=== PATIENT | male | born 1955 | race Caucasian/White ===

== ENCOUNTER 2023-01-07 17:18 | Inpatient (IN) | payer MEDICARE, OTHER ==
[2023-01-07] MEDS ORDERED: Albuterol/Ipratropium 3.0-0.5 MG/3 ML Neb Soln NEB ONE (17:40)
[2023-01-07 18:04] LABS: INR 1.87 (0.86-1.11)
[2023-01-07 18:13] LABS: A/G RATIO 0.8 (0.9-1.6); ALBUMIN 2.3 g/dL (3.4-5.0); BILIRUBIN TOTAL 0.5 mg/dL (0.2-1.0); CALCIUM 7.8 mg/dL (8.5-10.1); CARBON DIOXIDE,CO2 31.6 mmol/L (21.0-32.0); CREATININE 0.8 mg/dL (0.8-1.3); EST CRCL DRUG DOSING (CG) 92.82 mL/min; POTASSIUM,K 3.5 mmol/L (3.5-5.1); PROTEIN TOTAL,TP 5.3 g/dL (6.4-8.2)
[2023-01-07 18:32] LABS: HEMATOCRIT 27.8 % (42.0-52.0); MEAN CORPUSCULAR HGB CONC 32.4 g/dL (32.0-36.0); MEAN CORPUSCULAR VOLUME 98.9 fL (83.0-99.0); MEAN PLATELET VOLUME 13.6 fL (9.4-12.4); PLATELET COUNT,PLT 149 K/uL (150-400); RED BLOOD CELL COUNT 2.81 M/uL (4.52-5.90); WHITE BLOOD CELL COUNT,WBC 12.42 K/uL (3.9-11.3)
[2023-01-07 18:33] LABS: SEG NEUTROPHILS ABSOLUTE MAN 8.2 (1.4-5.7); SEG NEUTROPHILS PERCENT MAN 66 % (48.0-80.0)
[2023-01-07 18:33] LABS: CORONAVIRUS COVID-19 NAA NEGATIVE (NEGATIVE); INFLUENZA A NAA NEGATIVE (NEGATIVE); INFLUENZA B NAA NEGATIVE (NEGATIVE)
[2023-01-07 18:34] LABS: BAND ABSOLUTE MAN 1.2; BAND PERCENT MAN 10 %; BASOPHILS ABSOLUTE MAN 0.1 (0.0-0.1); BASOPHILS PERCENT MAN 1 % (0.0-1.5); EOSINOPHILS ABSOLUTE MAN 0.1 (0.0-0.7); EOSINOPHILS PERCENT MAN 1 % (0.0-7.0); LYMPHOCYTES ABSOLUTE MAN 0.6 (0.6-2.4); LYMPHOCYTES PERCENT MAN 5 % (16.0-40.0); METAMYELOCYTE ABSOLUTE MAN 1.1; METAMYELOCYTE PERCENT MAN 9 %; MONOCYTES ABSOLUTE MAN 0.7 (0.0-0.8); MONOCYTES PERCENT MAN 6 % (0.0-15.0); MYELOCYTE ABSOLUTE MAN 0.2; MYELOCYTE PERCENT MAN 2 %; NRBC MANUAL 2 %
[2023-01-07 18:35] LABS: ANISOCYTOSIS 1+ SLIGHT
[2023-01-07] MEDS ORDERED: Furosemide 40 MG/4 ML VIAL IVPUSH ONE (19:29)
[2023-01-07] MEDS ORDERED: Tetracaine HCl/PF 0.5% 4 ML Bottle EYEBOTH ONE (19:34)
[2023-01-07] MEDS ORDERED: cefTRIAXone 2 GM in Sodium Chloride 0.9% 50 ML IV ONE (20:57)
[2023-01-07] MEDS ORDERED: Morphine 2 MG/ML SYRINGE IVPUSH PRN (21:10)
[2023-01-07] MEDS ORDERED: Albuterol/Ipratropium 3.0-0.5 MG/3 ML Neb Soln NEB PRN (21:10)
[2023-01-07] MEDS ORDERED: Naloxone 0.4 MG/ML SDV IVPUSH PRN (21:10)
[2023-01-07] MEDS ORDERED: Polyethylene Glycol 3350 Powder 17 GM Packet PO PRN (21:10)
[2023-01-07] MEDS ORDERED: Sodium Chloride 0.9% 10 ML Syringe FLUSH PRN (21:10)
[2023-01-07] MEDS ORDERED: Sodium Chloride 0.9% 20 ML SDV IV PRN (21:10)
[2023-01-07] MEDS ORDERED: Sodium Chloride 0.9% 2.5 ML Syringe FLUSH PRN (21:10)
[2023-01-07] MEDS ORDERED: 50% Dextrose in Water 50 ML Syringe IVPUSH PRN (21:18)
[2023-01-07] MEDS ORDERED: Glucagon,Human Recombinant 1 MG Vial IM PRN (21:18)
[2023-01-08] MEDS ORDERED: Insulin Aspart 100 Units/ML 3 ML Pen SUBCUT SCH (07:30)
[2023-01-08] MEDS: Enoxaparin 40 MG/0.4 ML Syringe SUBCUT SCH (08:45)
[2023-01-08] MEDS: Ondansetron 4 MG/2 ML SDV IVPUSH PRN (08:45)
[2023-01-08] MEDS: Furosemide 40 MG/4 ML VIAL IVPUSH SCH ×2 (08:55→20:07)
[2023-01-08] MEDS ORDERED: cefTRIAXone 2 GM in Sodium Chloride 0.9% 50 ML IV SCH (09:00)
[2023-01-08 09:26] LABS: HEMATOCRIT 28.2 % (42.0-52.0); MEAN CORPUSCULAR HEMOGLOBIN 31.8 pg (28.0-32.0); MEAN CORPUSCULAR HGB CONC 31.9 g/dL (32.0-36.0); MEAN CORPUSCULAR VOLUME 99.6 fL (83.0-99.0); MEAN PLATELET VOLUME 13.1 fL (9.4-12.4); NRBC ABSOLUTE 0.34 K/uL (0.00-0.02); NRBC PERCENT 2.9 /100WBC (0.0-0.2); PLATELET COUNT,PLT 150 K/uL (150-400); RED BLOOD CELL COUNT 2.83 M/uL (4.52-5.90); WHITE BLOOD CELL COUNT,WBC 11.58 K/uL (3.9-11.3)
[2023-01-08] MEDS: cefTRIAXone 2 GM in Sodium Chloride 0.9% 50 ML IV SCH ×2 (09:36→20:05)
[2023-01-08 10:00] LABS: A/G RATIO 0.7 (0.9-1.6); ALBUMIN 2.1 g/dL (3.4-5.0); BILIRUBIN TOTAL 0.4 mg/dL (0.2-1.0); CARBON DIOXIDE,CO2 34.5 mmol/L (21.0-32.0); CREATININE 0.9 mg/dL (0.8-1.3); EST CRCL DRUG DOSING (CG) 82.5 mL/min; MAGNESIUM 1.6 mg/dL (1.8-2.4); POTASSIUM,K 3.6 mmol/L (3.5-5.1); PROTEIN TOTAL,TP 5.1 g/dL (6.4-8.2)
[2023-01-08 10:01] LABS: BAND PERCENT MAN 9 %; BASOPHILS ABSOLUTE MAN 0.1 (0.0-0.1); BASOPHILS PERCENT MAN 1 % (0.0-1.5); LYMPHOCYTES ABSOLUTE MAN 0.3 (0.6-2.4); LYMPHOCYTES PERCENT MAN 3 % (16.0-40.0); METAMYELOCYTE ABSOLUTE MAN 0.3; METAMYELOCYTE PERCENT MAN 3 %; MONOCYTES ABSOLUTE MAN 1.3 (0.0-0.8); MONOCYTES PERCENT MAN 11 % (0.0-15.0); MYELOCYTE ABSOLUTE MAN 0.2; MYELOCYTE PERCENT MAN 2 %; SEG NEUTROPHILS ABSOLUTE MAN 8.2 (1.4-5.7); SEG NEUTROPHILS PERCENT MAN 71 % (48.0-80.0)
[2023-01-08] MEDS ORDERED: Sodium Chloride 0.9% 0 ML ONE (10:12)
[2023-01-08] MEDS: Acyclovir 200 MG Cap PO SCH ×2 (10:21→20:06)
[2023-01-08] MEDS: Metoprolol Succinate 50 MG Tab.ER PO SCH (10:22)
[2023-01-08] MEDS: Gabapentin 300 MG Cap PO SCH ×2 (10:22→20:06)
[2023-01-08] MEDS: Fluconazole 100 MG Tab PO SCH (10:23)
[2023-01-08] MEDS: Pantoprazole 40 MG Tab.CR PO SCH (10:45)
[2023-01-08] MEDS: Acetaminophen 325 MG Tab PO PRN (21:21)
[2023-01-09 05:48] LABS: HEMATOCRIT 27.5 % (42.0-52.0); HEMOGLOBIN 8.8 g/dL (14.0-18.0); MEAN CORPUSCULAR HEMOGLOBIN 32.1 pg (28.0-32.0); MEAN CORPUSCULAR VOLUME 100.4 fL (83.0-99.0); MEAN PLATELET VOLUME 13.8 fL (9.4-12.4); PLATELET COUNT,PLT 137 K/uL (150-400); RED BLOOD CELL COUNT 2.74 M/uL (4.52-5.90); WHITE BLOOD CELL COUNT,WBC 10.11 K/uL (3.9-11.3)
[2023-01-09 06:13] LABS: CALCIUM 7.5 mg/dL (8.5-10.1); CARBON DIOXIDE,CO2 35.3 mmol/L (21.0-32.0); CREATININE 0.8 mg/dL (0.8-1.3); EST CRCL DRUG DOSING (CG) 92.82 mL/min; MAGNESIUM 1.6 mg/dL (1.8-2.4); PHOSPHORUS 4.2 mg/dL (2.6-4.7); POTASSIUM,K 2.9 mmol/L (3.5-5.1)
[2023-01-09 07:10] LABS: BAND ABSOLUTE MAN 2.6; BAND PERCENT MAN 26 %; EOSINOPHILS ABSOLUTE MAN 0.4 (0.0-0.7); EOSINOPHILS PERCENT MAN 4 % (0.0-7.0); LYMPHOCYTES ABSOLUTE MAN 0.8 (0.6-2.4); LYMPHOCYTES PERCENT MAN 8 % (16.0-40.0); METAMYELOCYTE ABSOLUTE MAN 1.1; METAMYELOCYTE PERCENT MAN 11 %; MONOCYTES ABSOLUTE MAN 1.1 (0.0-0.8); MONOCYTES PERCENT MAN 11 % (0.0-15.0); MYELOCYTE ABSOLUTE MAN 0.4; MYELOCYTE PERCENT MAN 4 %; SEG NEUTROPHILS ABSOLUTE MAN 3.6 (1.4-5.7); SEG NEUTROPHILS PERCENT MAN 36 % (48.0-80.0)
[2023-01-09] MEDS ORDERED: Potassium Chloride 20 MEQ Tab.ER PO ONE (07:18)
[2023-01-09] MEDS ORDERED: Magnesium Sulfate/Water 2 GM in Premix Bag 1 BAG IV ONE (07:18)
[2023-01-09] MEDS: Acetaminophen 325 MG Tab PO PRN ×2 (07:21→19:52)
[2023-01-09] MEDS: cefTRIAXone 2 GM in Sodium Chloride 0.9% 50 ML IV SCH ×2 (08:15→19:48)
[2023-01-09] MEDS: Furosemide 40 MG/4 ML VIAL IVPUSH SCH ×2 (10:00→20:42)
[2023-01-09] MEDS: Enoxaparin 40 MG/0.4 ML Syringe SUBCUT SCH (10:13)
[2023-01-09] MEDS: Acyclovir 200 MG Cap PO SCH ×2 (10:13→20:43)
[2023-01-09] MEDS: Fluconazole 100 MG Tab PO SCH (10:14)
[2023-01-09] MEDS: Metoprolol Succinate 50 MG Tab.ER PO SCH (10:16)
[2023-01-09] MEDS: Clopidogrel 75 MG Tab PO SCH (10:16)
[2023-01-09] MEDS: Pantoprazole 40 MG Tab.CR PO SCH (10:19)
[2023-01-09] MEDS: Gabapentin 300 MG Cap PO SCH ×2 (10:19→20:43)
[2023-01-10 06:31] LABS: CALCIUM 7.6 mg/dL (8.5-10.1); CARBON DIOXIDE,CO2 35.7 mmol/L (21.0-32.0); CREATININE 0.8 mg/dL (0.8-1.3); EST CRCL DRUG DOSING (CG) 92.82 mL/min; MAGNESIUM 1.9 mg/dL (1.8-2.4); POTASSIUM,K 3.8 mmol/L (3.5-5.1)
[2023-01-10 07:16] LABS: HEMATOCRIT 28.1 % (42.0-52.0); HEMOGLOBIN 8.8 g/dL (14.0-18.0); MEAN CORPUSCULAR HEMOGLOBIN 31.5 pg (28.0-32.0); MEAN CORPUSCULAR HGB CONC 31.3 g/dL (32.0-36.0); MEAN CORPUSCULAR VOLUME 100.7 fL (83.0-99.0); MEAN PLATELET VOLUME 13.2 fL (9.4-12.4); PLATELET COUNT,PLT 132 K/uL (150-400); RED BLOOD CELL COUNT 2.79 M/uL (4.52-5.90); WHITE BLOOD CELL COUNT,WBC 10.38 K/uL (3.9-11.3)
[2023-01-10 07:19] LABS: BAND ABSOLUTE MAN 2.9; BAND PERCENT MAN 28 %; BASOPHILS ABSOLUTE MAN 0.3 (0.0-0.1); BASOPHILS PERCENT MAN 3 % (0.0-1.5); EOSINOPHILS ABSOLUTE MAN 0.3 (0.0-0.7); EOSINOPHILS PERCENT MAN 3 % (0.0-7.0); LYMPHOCYTES ABSOLUTE MAN 0.8 (0.6-2.4); LYMPHOCYTES PERCENT MAN 8 % (16.0-40.0); METAMYELOCYTE ABSOLUTE MAN 0.5; METAMYELOCYTE PERCENT MAN 5 %; MONOCYTES ABSOLUTE MAN 1.3 (0.0-0.8); MONOCYTES PERCENT MAN 13 % (0.0-15.0); MYELOCYTE ABSOLUTE MAN 0.2; MYELOCYTE PERCENT MAN 2 %; SEG NEUTROPHILS ABSOLUTE MAN 3.9 (1.4-5.7); SEG NEUTROPHILS PERCENT MAN 38 % (48.0-80.0)
[2023-01-10 07:20] LABS: ANISOCYTOSIS 1+ SLIGHT; MICROCYTOSIS 1+ SLIGHT; POIKILOCYTOSIS 1+ SLIGHT
[2023-01-10] MEDS: Acyclovir 200 MG Cap PO SCH ×2 (08:35→20:07)
[2023-01-10] MEDS: Pantoprazole 40 MG Tab.CR PO SCH (08:36)
[2023-01-10] MEDS: Gabapentin 300 MG Cap PO SCH ×2 (08:36→20:07)
[2023-01-10] MEDS: Metoprolol Succinate 50 MG Tab.ER PO SCH (08:37)
[2023-01-10] MEDS: Clopidogrel 75 MG Tab PO SCH (08:38)
[2023-01-10] MEDS: Fluconazole 100 MG Tab PO SCH (08:39)
[2023-01-10] MEDS: Ondansetron 4 MG/2 ML SDV IVPUSH PRN (08:40)
[2023-01-10] MEDS: Enoxaparin 40 MG/0.4 ML Syringe SUBCUT SCH (08:42)
[2023-01-10] MEDS: Furosemide 40 MG/4 ML VIAL IVPUSH SCH ×2 (08:44→20:08)
[2023-01-10] MEDS: cefTRIAXone 2 GM in Sodium Chloride 0.9% 50 ML IV SCH ×2 (08:52→20:08)
[2023-01-11 06:19] LABS: HEMATOCRIT 26.8 % (42.0-52.0); HEMOGLOBIN 8.4 g/dL (14.0-18.0); MEAN CORPUSCULAR HEMOGLOBIN 31.8 pg (28.0-32.0); MEAN CORPUSCULAR HGB CONC 31.3 g/dL (32.0-36.0); MEAN CORPUSCULAR VOLUME 101.5 fL (83.0-99.0); NRBC ABSOLUTE 0.18 K/uL (0.00-0.02); NRBC PERCENT 2.1 /100WBC (0.0-0.2); PLATELET COUNT,PLT 124 K/uL (150-400); RED BLOOD CELL COUNT 2.64 M/uL (4.52-5.90); WHITE BLOOD CELL COUNT,WBC 8.77 K/uL (3.9-11.3)
[2023-01-11 06:41] LABS: CALCIUM 7.7 mg/dL (8.5-10.1); CARBON DIOXIDE,CO2 34.2 mmol/L (21.0-32.0); CREATININE 0.9 mg/dL (0.8-1.3); EST CRCL DRUG DOSING (CG) 82.5 mL/min; POTASSIUM,K 3.8 mmol/L (3.5-5.1)
[2023-01-11 08:40] LABS: BAND ABSOLUTE MAN 1.3; BAND PERCENT MAN 15 %; BASOPHILS ABSOLUTE MAN 0.1 (0.0-0.1); BASOPHILS PERCENT MAN 1 % (0.0-1.5); EOSINOPHILS ABSOLUTE MAN 0.1 (0.0-0.7); EOSINOPHILS PERCENT MAN 1 % (0.0-7.0); LYMPHOCYTES ABSOLUTE MAN 0.6 (0.6-2.4); LYMPHOCYTES PERCENT MAN 7 % (16.0-40.0); METAMYELOCYTE ABSOLUTE MAN 0.4; METAMYELOCYTE PERCENT MAN 5 %; MONOCYTES PERCENT MAN 11 % (0.0-15.0); MYELOCYTE ABSOLUTE MAN 0.7; MYELOCYTE PERCENT MAN 8 %; PROMYELOCYTE ABSOLUTE MAN 0.1; PROMYELOCYTE PERCENT MAN 1 %; SEG NEUTROPHILS ABSOLUTE MAN 4.5 (1.4-5.7); SEG NEUTROPHILS PERCENT MAN 51 % (48.0-80.0)
[2023-01-11 08:43] LABS: ACANTHOCYTES FEW; ELLIPTOCYTES FEW; HELMET CELLS 1+ SLIGHT; POIKILOCYTOSIS 2+ MODERATE
[2023-01-11 08:44] LABS: ROULEAUX 1+ SLIGHT; SPHEROCYTES RARE
[2023-01-11] MEDS: Fluconazole 100 MG Tab PO SCH (08:52)
[2023-01-11] MEDS: Acyclovir 200 MG Cap PO SCH (08:52)
[2023-01-11] MEDS: Gabapentin 300 MG Cap PO SCH ×2 (08:58→20:27)
[2023-01-11] MEDS: Pantoprazole 40 MG Tab.CR PO SCH (08:59)
[2023-01-11] MEDS: Clopidogrel 75 MG Tab PO SCH (08:59)
[2023-01-11] MEDS: Enoxaparin 40 MG/0.4 ML Syringe SUBCUT SCH (09:01)
[2023-01-11] MEDS: cefTRIAXone 2 GM in Sodium Chloride 0.9% 50 ML IV SCH ×2 (09:02→20:27)
[2023-01-11] MEDS: Furosemide 40 MG/4 ML VIAL IVPUSH SCH ×2 (09:02→20:27)
[2023-01-11] MEDS: Metoprolol Succinate 50 MG Tab.ER PO SCH (09:04)
[2023-01-12 07:49] LABS: HEMATOCRIT 24.6 % (42.0-52.0); HEMOGLOBIN 7.8 g/dL (14.0-18.0); MEAN CORPUSCULAR HGB CONC 31.7 g/dL (32.0-36.0); MEAN CORPUSCULAR VOLUME 100.8 fL (83.0-99.0); NRBC PERCENT 1.8 /100WBC (0.0-0.2); PLATELET COUNT,PLT 133 K/uL (150-400); RED BLOOD CELL COUNT 2.44 M/uL (4.52-5.90); WHITE BLOOD CELL COUNT,WBC 10.96 K/uL (3.9-11.3)
[2023-01-12 08:33] LABS: CALCIUM 7.8 mg/dL (8.5-10.1); CREATININE 0.9 mg/dL (0.8-1.3); EST CRCL DRUG DOSING (CG) 82.5 mL/min; POTASSIUM,K 3.6 mmol/L (3.5-5.1)
[2023-01-12] MEDS: Clopidogrel 75 MG Tab PO SCH (08:37)
[2023-01-12] MEDS: Gabapentin 300 MG Cap PO SCH (08:37)
[2023-01-12] MEDS: Pantoprazole 40 MG Tab.CR PO SCH (08:37)
[2023-01-12] MEDS: Metoprolol Succinate 50 MG Tab.ER PO SCH (08:41)
[2023-01-12] MEDS: Enoxaparin 40 MG/0.4 ML Syringe SUBCUT SCH (08:44)
[2023-01-12] MEDS: cefTRIAXone 2 GM in Sodium Chloride 0.9% 50 ML IV SCH (08:46)
[2023-01-12 10:09] LABS: BAND ABSOLUTE MAN 1.5; BAND PERCENT MAN 14 %; BASOPHILS ABSOLUTE MAN 0.2 (0.0-0.1); BASOPHILS PERCENT MAN 2 % (0.0-1.5); EOSINOPHILS ABSOLUTE MAN 0.1 (0.0-0.7); EOSINOPHILS PERCENT MAN 1 % (0.0-7.0); LYMPHOCYTES ABSOLUTE MAN 0.4 (0.6-2.4); LYMPHOCYTES PERCENT MAN 4 % (16.0-40.0); METAMYELOCYTE ABSOLUTE MAN 0.5; METAMYELOCYTE PERCENT MAN 5 %; MONOCYTES PERCENT MAN 9 % (0.0-15.0); MYELOCYTE ABSOLUTE MAN 0.7; MYELOCYTE PERCENT MAN 6 %; PROMYELOCYTE ABSOLUTE MAN 0.1; PROMYELOCYTE PERCENT MAN 1 %; SEG NEUTROPHILS ABSOLUTE MAN 6.4 (1.4-5.7); SEG NEUTROPHILS PERCENT MAN 58 % (48.0-80.0)
[2023-01-12] MEDS: Furosemide 40 MG/4 ML VIAL IVPUSH SCH (11:21)
== END 2023-01-12 14:30 | disposition home or self-care (01) | DRG 603 ==
LOC: MW.ED 17:18 → MW.MS 20:58
PROVIDERS: ADMIT Family Medicine; ATTEND Family Medicine
DX: L03.213 Periorbital cellulitis (principal); C90.00 Multiple myeloma not having achieved remission; H53.8 Other visual disturbances; Z20.822 Contact with and (suspected) exposure to COVID-19; Z66 Do not resuscitate; I11.0 Hypertensive heart disease with heart failure; I50.9 Heart failure, unspecified; J44.9 Chronic obstructive pulmonary disease, unspecified; Z98.890 Other specified postprocedural states; Z88.8 Allergy status to other drugs, medicaments and biological substances; Z79.82 Long term (current) use of aspirin; Z79.899 Other long term (current) drug therapy; Z79.02 Long term (current) use of antithrombotics/antiplatelets
CPT/HCPCS: 0240U; 36415; 70480; 70480-26; 71045; 71045-26; 80048; 80053; 80202; 83735; 83880; 84100; 84484; 85025; 85610; 86140; 93005; 93010; 99222; 99231; 99232; 99239; 99285; A9270-GY; J0696; J1642; J1650; J1940; J2405; J3370; J3475; J3490; J7050; J7620-GY